=== PATIENT | female | born 1960 | race Caucasian/White ===

== ENCOUNTER 2017-04-24 08:18 | Emergency (ER) | payer BC ==
[~2017-04-24] VITALS: Ht 170.2 cm; Wt 72.4 kg
[~2017-04-24 08:18] MED LIST: ADVIL200 MG PO; CLARITIN-D 121 EACH PO; Ecotrin PO; IMITREX50 MG; LEXAPRO5 MG PO; LIPITOR40 MG PO; LOW DOSE ASPIRI81 M1 PO; MAG-TAB SR84 MG PO; MEGA MULTIVITA1 EAC2 PO; NOLVADEX20 MG PO; OCUVITE TABLET1 EACH PO; POTASSIUM CITRA5 MEQ PO; PREMARIN0.3 MG PO; REFRESH TEARS15 ML BOTH EYES; TUMS500 MG PO; VITAMIN D400 UNIT PO; VITAMIN E400 UNIT PO; ZOLPIDEM TARTRA10 MG PO
[2017-04-24 08:52] LABS: HEMATOCRIT 40.5 % (36.0-46.0); HEMOGLOBIN 13.8 G/DL (11.9-15.5); MCH 32.4 PG (29.0-34.0); MCHC 34.1 G/DL (30.0-36.0); MCV 95.1 FL (83-99); PLATELET COUNT 166 K/uL (156-360); RBC DIS.WIDTH-CV 11.8 % (11.8-14.6); RBC DIS.WIDTH-SD 41.1 % (39-53); RED BLOOD COUNT 4.26 M/uL (3.80-5.20); WHITE BLOOD COUNT 11.4 K/uL (4.1-10.2)
[2017-04-24 09:06] LABS: CHLORIDE 108 mEq/L (99-109); SODIUM 141 mEq/L (136-147)
[2017-04-24 09:08] LABS: GLUCOSE 112 mg/dL (70-99)
[2017-04-24 09:12] LABS: GFR ESTIMATE (CALCULATED) > 59 mL/min/
[2017-04-24 09:13] LABS: UREA NITROGEN (BUN) 16 mg/dL (9-23)
[2017-04-24 11:16] LABS: APPEARANCE SL.HAZY ((CLEAR)); BILIRUBIN NEGATIVE; BLOOD NEGATIVE; COLOR YELLOW ((YELLOW)); GLUCOSE (STRIP) NEGATIVE; KETONES 5; LEUKOCYTES NEGATIVE; NITRITE NEGATIVE; PROTEIN (STRIP) NEGATIVE; SPECIFIC GRAVITY 1.013 (1.000-1.030); UROBILINOGEN 0.2 MG/DL (0.2-1.0)
[2017-04-24 11:23] LABS: BACTERIA NONE SEEN /HPF; EPITHELIAL CELLS NONE SEEN /HPF; MUCUS TRACE /LPF
[2017-04-24] MEDS ORDERED: ZOFRAN4 MG PO (11:44)
[2017-04-24] MEDS ORDERED: FLOMAX0.4 MG PO (11:44)
[2017-04-24] MEDS ORDERED: NORCO 5/3251 TABLET PO (11:44)
[2017-04-24 11:57] VITALS: BP 139/83
== END 2017-04-24 11:58 | disposition home or self-care (01) ==
LOC: EME 08:18
PROVIDERS: Emergency Medicine
DX: N13.2 Hydronephrosis with renal and ureteral calculous obstruction (principal); Z90.710 Acquired absence of both cervix and uterus; Z87.442 Personal history of urinary calculi; Z79.82 Long term (current) use of aspirin
CPT/HCPCS: 74176; 80048; 81003; 85027; 87086; 99281; 99285; J2270; J7030